=== PATIENT | female | born 1930 | race Caucasian/White ===

== ENCOUNTER 2017-06-15 13:49 | Emergency (ER) | payer MEDICARE, BC ==
--- NOTE | 2017-06-15 14:51 | CT ---
HEAD CT WITHOUT CONTRAST: Date: 06-15-17 Comparison: None. History: Fall, head trauma. Technique: Serial axial CT imaging at 5 mm intervals from vertex through the skull base without contr ast. FINDINGS: The imaged paranasal sinuses/mastoid air cells are well aerated. There is atherosclerotic calcificati on of the cavernous carotid arteries. There is a focal area of scalp swelling posteriorly near the ve rtex on axial image 22. There is no intracranial hemorrhage, midline shift, mass effect, or ventricul ar enlargement. IMPRESSION: Focal area of posterior scalp swelling with no associated hemorrhage or calvarial fracture. POS: MARCIO
[2017-06-15] MEDS ORDERED: Adacel (T-DAP) 0.5 ML VIAL ONE (15:23)
== END 2017-06-15 15:47 | disposition home or self-care (01) ==
LOC: ERS 13:49
DX: S00.93XA Contusion of unspecified part of head, initial encounter (principal); E03.9 Hypothyroidism, unspecified; Z87.891 Personal history of nicotine dependence; Z79.82 Long term (current) use of aspirin; Z79.899 Other long term (current) drug therapy; W18.30XA Fall on same level, unspecified, initial encounter
CPT/HCPCS: 70450; 90471; 90715

== ENCOUNTER 2017-09-08 08:28 | Day surgery (SDC) | payer MEDICARE, BC ==
[2017-09-07 14:49] VITALS: BMI 24.2
--- NOTE | 2017-09-08 11:49 | OP ---
DATE OF PROCEDURE: 09/08/2017 SURGEON: Rene Ferris MD ACCOUNTS PAYABLE ACCOUNTANT SURGEON: None. PROCEDURE: Esophagogastroduodenoscopy with esophageal dilation over a guidewire. INDICATION: Dysphagia. MEDICATIONS: See anesthesia record. FINDINGS: After discussion of the risks, benefits and alternatives of the procedure, informed consen t was obtained and witnessed. Pre-endoscopic cardiopulmonary examination was satisfactory. Timeout was performed before sedation was achieved. Sedation was achieved with Anesthesia assistance in the endoscopy unit. A Pentax adult upper endoscope was placed into the oropharynx and passed through the cricopharyngeus under direct visualization. In the proximal esophagus, there is a small inlet patch , but there is no associated erythema or mucosal irritation, no associated stricture. The remainder of the esophageal mucosa appears normal throughout with a normal-appearing Z-line. No esophageal str icture or other explanation for dysphagia symptoms was identified. The endoscope was passed forward into the stomach. Forward and retroflexed views of the entire gastric mucosa were obtained. The gas tric mucosa appeared normal. The endoscope was passed through the pylorus and into the first and sec ond portions of the duodenum, which also appeared normal. At this point, it was decided to proceed w ith empiric dilation of the esophagus. A Savary spring tipped guidewire was passed through the endos cope and the endoscope was removed leaving the wire in place with the tip in the gastric antrum. Mark johnson performed a single Savary dilation over the guidewire to 18 mm. The dilator passed with only mil d resistance. At this point, the dilator and the guidewire were removed and the esophagus was reintu bated. Examination of the esophagus demonstrated no change. The procedure was then complete and the patient was allowed to recover. The patient tolerated the procedure well. There were no immediate post-procedure complications. IMPRESSION: 1. Normal esophagogastroduodenoscopy. 2. Esophagus empirically dilated over guidewire to 18 mm. RECOMMENDATIONS: 1. Follow up in clinic in about 3 weeks. 2. Continue daily Nexium. 3. Resume Plavix. 4. If there is no improvement in the patient's dysphagia symptoms on followup despite esophageal dil ation, consider getting contrast esophagram to rule out a Zenker's diverticulum.
[2017-09-08] MEDS ORDERED: PHENYLEPHRINE-NS 100 MCG/ML 10 ML SYRINGE ONE (15:33)
[2017-09-08] MEDS ORDERED: PROPOFOL 200 MG/20 ML VIAL ONE (15:33)
== END 2017-09-08 11:18 | disposition home or self-care (01) ==
LOC: SDC 08:28
PROVIDERS: ATTEND Internal Medicine
PROC: 0D758ZZ Dilation of Esophagus, Via Natural or Artificial Opening Endoscopic (ICD-10-PCS; principal; 2017-09-08)
DX: R13.10 Dysphagia, unspecified (principal); I48.91 Unspecified atrial fibrillation; I25.10 Atherosclerotic heart disease of native coronary artery without angina pectoris; M19.90 Unspecified osteoarthritis, unspecified site; E07.9 Disorder of thyroid, unspecified; Z86.73 Personal history of transient ischemic attack (TIA), and cerebral infarction without residual deficits; Z86.010 Personal history of colon polyps; Z87.891 Personal history of nicotine dependence; Z79.82 Long term (current) use of aspirin; Z79.02 Long term (current) use of antithrombotics/antiplatelets; Z79.899 Other long term (current) drug therapy; Z91.040 Latex allergy status
CPT/HCPCS: J2704